=== PATIENT | male | born 1975 | race Caucasian/White ===

== ENCOUNTER 2017-03-01 22:14 | Inpatient (IN) ==
[2017-03-01] MEDS ORDERED: ACETAMINOPHEN 325 MG TABLET PO PRN (23:36)
[2017-03-01] MEDS ORDERED: LORazepam 2 MG/1 ML VIAL IV PRN (23:36)
[2017-03-01] MEDS ORDERED: LABETALOL 100 MG/20 ML VIAL IV PRN (23:36)
[2017-03-01] MEDS ORDERED: ALBUTEROL 2.5 MG/3 ML NEB RESP TX PRN (23:36)
[2017-03-02] MEDS: SODIUM CHLORIDE 0.9% 1,000 ML IV SCH ×2 (00:04→11:52)
[2017-03-02 00:46] LABS: Basophils % 0.2 % (0.0-0.8); Eosinophils % 0.1 % (0.00-10.9); Hematocrit 38.5 VOL% (42.0-52.0); Hemoglobin 13.9 GM/DL (14.0-18.0); Immature Granulocytes % 0.5 %; Immature Granulocytes Absolute 0.06 #; Lymphocytes # 2.1 10*3/uL (1.4-4.0); Lymphocytes % 18.6 % (21.2-54.2); Mean Corpuscular HGB Conc 36.1 GM/DL (32-36); Mean Corpuscular Hemoglobin 29 PG (27-34); Mean Corpuscular Volume 80.4 FL (87-102); Mean Platelet Volume 11.1 FL (9.6-12.0); Monocytes # 0.7 10*3/uL (0.11-0.8); Monocytes % 5.8 % (1.7-12.7); Neutrophils # 8.3 10*3/uL (1.4-7.4); Neutrophils % 74.8 % (38.7-73.9); Platelet Count 279 T/CUMM (130-400); Red Blood Count 4.79 MC/CUMM (3.8-5.5); Red Cell Distribution Width 12.9 % (9.3-17.3); White Blood Count 11.1 T/CUMM (4-12)
[2017-03-02 01:15] LABS: Albumin 3.7 G/DL (3.4-5.0); Bilirubin,Total 0.7 MG/DL (0.2-1.0); Calcium 8.7 MG/DL (8.5-10.1); Osmolality,Calculated 267.2 MOS/KG (273-304); Potassium 3.6 MMOL/L (3.5-5.1); Total Protein 6.3 G/DL (6.4-8.3)
--- NOTE | 2017-03-02 02:43 | Hospitalist History & Physical ---
Assessment and Plan (1) Hypertensive emergency Status: Acute Current Visit: Yes (2) Altered mental status Status: Acute Current Visit: Yes (3) Alcohol abuse Status: Acute Assessment and plan: Plan for this patient will be admitting him to the ICU. We accept him as a direct transfer therefore we could not fully evaluate him prior to putting him in the ICU. Currently he is appropriate. He does need to be observed to make sure that there is no evidence of DTs. Will have some as needed benzos available. We will continue to watch his blood pressure. But I do think it would be appropriate to get a CT scan of his head. Current Visit: Yes History of Present Illness Chief complaint: Altered mental status, hypertensive urgency History of present illness: Mr. Gabriel is a 41 year old male no past medical history presents to our ER as a transfer from [facility]. Apparently patient was arrested for open container Thursday night. Patient spent a night in the intermediate. Patient became diaphoretic and combative. [facility] and had an accelerated blood pressure. I tried multiple medications on him including labetalol and clonidine. Patient also received some Haldol at the intermediate and received Ativan at the emergency room. Patient is currently in our CCU. Patient is a little confused but appropriate. Says that he feels bad but no specific complaints. Patient denies any history of hypertension. He admits that he drinks alcohol and that he does not drink every day although he drinks every week. The ER that he will assume that he was having DTs. We accept the patient is transfer. Patient is currently not combative at this time. Patient had a sodium of 125 at the other hospital but is currently 134 hours. Home Medications Medication Instructions Recorded Confirmed Type No Known Home Medications [No 03/01/17 03/01/17 History Known Home Medications] Allergies Allergy/AdvReac Type Severity Reaction Status Date / Time No Known Allergies Allergy Verified 03/01/17 23:41 Medical,Surgical,& Family Hx - Medical History Medical History: noncontributory (Patient denies any history of medical problems ) Musculoskeletal: No history of: Amputation - Surgical History Surgical History: noncontributory (Patient denies any surgeries) Cardiac Surgeries: Patient Denies: Cardiac Catheterization, Cardiac Surgery Neurologic Surgeries: Patient denies: Neurologic Surgery - Family History Family History: Reports;: Family Heart Disease - Social History Smoking Status: Current every day smoker Frequency of Alcohol Use: Frequently Type of Drug Use: None 12 point system: reviewed and no additional remarkable complaints except as stated Exam - Constitutional Vitals: Period Temp Pulse Resp BP Sys/Barron Pulse Ox Last 24 Hr 97.4 F 86-106 20-21 120-136/72-86 95-98 General appearance: normal weight - Head Head exam: Present: normal inspection - Eye Eye exam: Present: EOMI Pupils: Present: BARBIE - ENT ENT exam: Present: normal exam - Neck Neck exam: Present: normal inspection - Respiratory Respiratory exam: Present: clear to auscultation bilaterally - Cardiovascular Cardiovascular exam: Present: regular rate and rhythm - GI/Abdominal GI/Abdominal exam: Present: normal bowel sounds - Extremities Exam Extremities exam: Present: normal inspection - Back Exam Back exam: Present: normal inspection - Neurological Exam Neurological exam: Present: alert - Psychiatric Psychiatric exam: Present: normal affect, normal mood - Skin Skin exam: Present: normal color Results - Labs CBC & BMP: 03/02/17 00:18 03/02/17 00:18
--- NOTE | 2017-03-02 07:29 | CT Report ---
CT brain Indication: Altered mental status Comparison: None available Technique: Axial CT imaging of the brain is performed without contrast with 3 mm increments. Findings: No evidence of hemorrhage, mass mass effect midline shift or acute infarct seen. The brain parenchyma attenuation and differentiation appears within normal limits. The ventricles and cisterns are normal in caliber. No cranial or skull base abnormality is identified. Impression: No evidence of abnormality demonstrated. This CT exam was performed using one or more the following dose reduction techniques: Automated exposure control, adjustment of the MA and/or KV according to patient size, or use of iterative reconstruction technique. PROCEDURE INTERPRETED AT [facility] DEPARTMENT OF RADIOLOGY Final Report Signed by: Dr. Terry Godoy
[2017-03-02] MEDS ORDERED: THIAMINE 100 MG TABLET PO SCH (09:00)
[2017-03-02] MEDS ORDERED: MULTIVITAMIN (CENTRUM) TABLET PO SCH (09:00)
[2017-03-02] MEDS ORDERED: PANTOPRAZOLE 40 MG TABLET PO SCH (09:00)
[2017-03-02] MEDS ORDERED: FOLIC ACID 1 MG TABLET PO SCH (09:00)
[2017-03-02] MEDS: chlordiazePOXIDE 10 MG CAPSULE PO SCH ×2 (10:18→14:08)
[2017-03-02] MEDS ORDERED: NICOTINE 21 MG/24 HR PATCH TRANSDERM SCH (10:30)
[2017-03-02 12:56] VITALS: BP 171/99
[2017-03-02] MEDS ORDERED: chlordiazePOXIDE 10 MG CAPSULE PO SCH (13:00)
[2017-03-02] MEDS ORDERED: INFLUENZA VIRUS VACCINE 0.5 ML SYRINGE IM ONE ×2 (13:24→14:30)
--- NOTE | 2017-03-02 14:31 | Discharge Summary ---
Hospital Course - Hospital Course Hospital Course: Mr Gabriel presented from [facility] where he had been taken from local assisted after being detained for driving with an open container. He had a spell of diaphoresis and combativeness and was taken to [place]. Since he has been here he has been calm. He wants to go home to [place] today. He had a dose of Librium at 10am, and will wait until 4pm before he leaves and begins to arrange his trip home. He wants rehab and our SW is looking into possibilities for him in [place]. He initially said he wanted to be an inpatient but is now undecided. He is not confused. He understands the considerations of alcohol withdrawal and wants to be discharged. No family has called according to the nurses. He is capable of making decisions for himself. His BP is elevated and he will be discharged on norvasc and HCTZ and should follow up with his PCP this week. He will take Librium once he his returned home in a taper outlined on the prescription. He is counselled to stop drinking alcohol and 5 minutes were spent discussing smoking cessation. - Time spent with patient Time with patient DS: Greater than 30 minutes (counselling with patient, discharge planning, documentation, medicine reconciliation) Diagnosis - Discharge Diagnosis (1) Hypertensive emergency Status: Resolved (2) Altered mental status Status: Resolved (3) Alcohol abuse Status: Chronic Specialty Discharge - Follow Up or Referrals Follow up with: Your, PCP [Other] (3 days) [facility] [Other] (NAEL) Discharge Plan - Discharge Data Disposition: Disch To Home/Self Care Condition at Discharge: Stable Discharge Diet: diabetic diet, heart healthy Activity: resume usual activities as tolerated Driving: other (do not drive while drinking or taking medicines that alter your level of alertness) - Discharge Medications New Folic Acid Tab 1 mg PO DAILY tablet Multivitamin (Centrum) [Centrum Tab] 1 tablet PO DAILY tablet Thiamine Tab [Vitamin B1 Tab] 100 mg PO DAILY tablet Triamterene/Hydrochlorothiazid [Triamterene-Hctz 37.5-25 mg Cp] 1 each PO DAILY #30 capsule amLODIPine [Norvasc] 10 mg PO DAILY #30 tablet chlordiazePOXIDE [Librium] 10 mg PO QID #14 capsule - Follow Up or Referral Follow Up: Your, PCP [Other] (3 days) alcohol [facility] [Other] (NAEL) - Forms/Instructions Exam - Constitutional Vitals: Period Temp Pulse Resp BP Sys/Barron Pulse Ox Last 24 Hr 97.4 F-98 F 70-106 18-26 120-171/72-115 93-100 General appearance: normal weight, no acute distress - Head Head exam: Present: normocephalic, atraumatic - Eye Eye exam: Present: EOMI. Absent: scleral icterus - Respiratory Respiratory exam: Present: clear to auscultation bilaterally - Cardiovascular Cardiovascular exam: Present: regular rate and rhythm - GI/Abdominal GI/Abdominal exam: Present: normal bowel sounds, soft. Absent: tenderness - Extremities Exam Extremities exam: Absent: edema - Neurological Exam Neurological exam: Present: alert, oriented X3, CN II-XII intact. Absent: motor sensory deficit - Skin Skin exam: Present: warm, dry Discharge Results Procedures and tests throughout hospitalization: Pending Orders 03/01/17 23:35 MRSA Surveillence, Inf Control Routine Labs on day of discharge: Labs from last 24 hours 03/02/17 03/02/17 00:18 00:18 WBC 11.1 RBC 4.79 Hgb 13.9 L Hct 38.5 L MCV 80.4 L MCH 29 MCHC 36.1 H RDW 12.9 Plt Count 279 MPV 11.1 Neut % (Auto) 74.8 H Lymph % (Auto) 18.6 L [place] % (Auto) 5.8 Eos % (Auto) 0.1 Baso % (Auto) 0.2 Neut # (Auto) 8.3 H Lymph # (Auto) 2.1 [place] # (Auto) 0.7 Eos # (Auto) 0.0 Baso # (Auto) 0.0 Immature Gran % 0.5 Nucleated RBC % 0.0 Immature Gran # 0.06 Nucleated RBCs # 0.00 Immature Plt Fraction 0.0 Sodium 134 L Potassium 3.6 Chloride 98 Carbon Dioxide 25 Anion Gap 14.6 BUN 12 Creatinine 0.60 L GFR Calculation 148 BUN/Creatinine Ratio 20.00 Glucose 98 Calculated Osmolality 267.2 L Calcium 8.7 Total Bilirubin 0.70 AST 34 ALT 30 Alkaline Phosphatase 85 Total Protein 6.3 L Albumin 3.7 Globulin 2.6 Albumin/Globulin Ratio 1.4 DS: Provider Date of admission: 03/01/17 23:38 Primary care physician: Dl Michele MD Attending physician on admission: Dl Michele MD Consults: 03/02/17 09:58 Consult to Case Mgmt/Social Srvs [CONS] Routine Reason for Case Mgmt/Social Srvs: Discharge Planning Psychiatric Management Discharging clinician: Kerry Carreon MD
[2017-03-03] MEDS ORDERED: amLODIPine 10 MG TABLET PO SCH (09:00)
--- NOTE | 2017-03-04 06:47 | Physician Query Form ---
CLICK EDIT DOCUMENT TO SELECT QUERY ANSWER --> OK --> SIGN Tata Aragon RN, CCDS Certified [facility] W) [phone] (f) [phone] [email or web address] PROVIDERS: Make your selection(s) from the choices in EACH section by typing an "x" and enter comments in the comment section. Please use your independent medical judgment in providing your response. This request does not imply that any particular answer is desired or expected. CLINICAL INDICATORS: (Providers should not edit this section) The medical record indicates that the patient was admitted with hypertensive emergency, AMS, Alcohol abuse, "Patient is a little confused but appropriate", "had a sodium of 125 at the other hospital but is currently 134", and the patient had a CT of the brain done. ACUITY: ( x) Acute ( ) Acute on Chronic ( ) Chronic ( ) Clinically unable to determine NATURE: ( ) Delirium due to general medical condition ( ) Dementia ( ) Encephalopathy ( ) Unconscious ( ) Transient level of awareness ( ) Comatose ( ) Locked-in State ( ) Persistent Vegetative State ( x) Other, please specify: alcohol intoxication ( ) Clinically unable to determine Please indicate the underlying cause of the altered mental status (CHECK ALL THAT APPLY): ( ) Baseline dementia ( ) Alzheimer's disease ( ) Parkinson's disease ( ) Lewy body dementia ( ) Acute stroke ( ) Late effect of stroke ( ) Reactive (from emotional stress, psychological trauma) ( ) Due to narcotics/other drugs ( ) Post procedural delirium ( ) Transient ischemic attack ( ) Generalized cerebral edema ( ) Normal pressure hydrocephalus ( ) Psychiatric illness ( x) Other, please specify:no chronic cognitive problems ( ) Clinically unable to determine Please indicate if there is an infection, sepsis, dehydration or specific organ failure that is causing the dementia. Be specific with clarifying the relationship between that process and the mental status change. COMMENTS: PLEASE ALSO DOCUMENT RESPONSE IN PROGRESS NOTES AND/OR DISCHARGE SUMMARY Use of terms such as suspected, likely, or probable (associated with a specific diagnosis that is being evaluated, monitored, or treated as if it exists) are acceptable and can be restated in the discharge summary if not ruled out. MTDD
== END 2017-03-02 16:00 | disposition home or self-care (01) | DRG 305 ==
LOC: N.CC 23:19 → SUATTDRO 23:19
PROVIDERS: ADMIT Internal Medicine; ATTEND Internal Medicine